=== PATIENT | female | born 1980 | race Caucasian/White ===

== ENCOUNTER 2017-09-08 15:56 | Inpatient (IN) | payer OTHER ==
[2017-09-08 18:46] VITALS: BMI 29.2
[2017-09-08] MEDS: Lactated Ringer's 1,000 ML IV SCH ×2 (19:00→20:00)
[2017-09-08] MEDS ORDERED: Lactated Ringer's 1,000 ML IV SCH ×2 (19:00→21:45)
[2017-09-08] MEDS ORDERED: ceFAZolin 2 GM in Sodium Chloride 0.9% 100 ML IVPB ONE (19:00)
[2017-09-08] MEDS ORDERED: Oxytocin 30 units/LR 500ML 30 U/500 ML BAG IV PRN (19:00)
[2017-09-08 19:39] LABS: BASO % 0.2 % (0.0-2.0); EOS # 0.1 K/uL (0.0-0.7); EOS % 0.9 % (0.0-4.0); HEMATOCRIT 39.2 % (34.0-47.0); LYMPH # 2.6 K/uL (1.0-4.3); LYMPH % 23.4 % (20.0-40.0); MEAN CELL VOLUME 76.1 fl (81.0-99.0); MEAN CORPUSCULAR HEMOGLOBIN 23.6 pg (27.0-31.0); MEAN PLATELET VOLUME 11.9 fl (7.2-11.7); MONO # 0.7 K/uL (0.0-0.8); MONO % 6.7 % (0.0-10.0); NEUT # 7.6 K/uL (1.8-7.0); NEUT % 68.8 % (50.0-75.0)
[2017-09-08] MEDS ORDERED: Morphine 1 mg/ml preservative-free Inj(Duramorph) ONE (20:17)
[2017-09-08] MEDS ORDERED: DiphenhydrAMINE 50 mg/ml Inj IVP PRN (20:46)
[2017-09-08] MEDS ORDERED: Oxycodone/Acetaminophen 5/325 mg Tab PO PRN ×2 (21:32)
[2017-09-08 22:00] VITALS: RESP 18; TEMP 98.6
--- NOTE | 2017-09-08 22:53 | OBADHP ---
Datetime: 09/08/2017 19:24 Admit Comment, IP Provider: 37 y/o female at 38.4wks with YANDEL 11/5 presents to [facility] with CTX st arting at 4pm q5-10min and vaginal bleeding. Denies loss of fluid. Reports good movement. PNC unremarkable. 3rd trimester labs nrml ObHx: Previous C cection, full term, 2011 MedHx: denies SurgHx: denies Social: denies smoking, alcohol, drugs Rxmeds: PNV, Folic acid Allergies: NVDA Triage Vitals wnl FHR: 149, reactive Assessment: IUP at 38.4 wks previous Hx of C section with CTX and vginal bleeding. Plan: Admit for cection [place], PGY1 Pelvic Type - PN: Not Done Extremities - PN: Normal Abdomen - PN: Normal Back - PN: Normal Breast - PN: Not Done Lungs - PN: Normal Heart - PN: Normal Thyroid - PN: Not Done Neurologic - PN: Not Done HEENT - PN: Not Done General - PN: Normal Vital Signs Provider: Reviewed; Within Normal Limits IP Chief Complaint: Uterine contractions; Vaginal bleeding Genitourinary Exam: Not Done DTRs - PN: Not Done EGA AdmitDate IP: 38.4 IP Adm Impression: Term, intrauterine IP Admit Plan: Admit to unit; Initiate Section protocol; Observation/Evaluation
--- NOTE | 2017-09-08 23:03 | OBDS ---
MATERNAL INFORMATION Provider Comments: Repeat low flap transverse section via Pfannenstiel incision. Patient delivered viable infant female with Apgars of 9 and 9 at one and 5 minutes respectively. N ormal uterus, normal tubes and ovaries bilaterally. Estimated blood loss 800 mL fluids 1300 mL lactated Ringer's Urine output 300 mL of clear urine No complications. Patient tolerated procedure well. LABOR SUMMARY EDC: 09/18/2017 00:00 CSECTION DELIVERY Primary Indication: Repeat Elective Labor: Labor Elective: Elective
[2017-09-09] MEDS ORDERED: DiphenhydrAMINE 50 mg/ml Inj IVP PRN (01:16)
[2017-09-09] MEDS ORDERED: Oxycodone/Acetaminophen 5/325 mg Tab PO PRN (01:16)
[2017-09-09] MEDS: Lactated Ringer's 1,000 ML IV SCH ×2 (05:56→13:45)
--- NOTE | 2017-09-09 09:36 | OBPPN ---
Datetime: 09/09/2017 09:29 PP Pain Prov: Within normal limits PP Nausea Prov: Denies PP Flatus Prov: Yes PP Breasts Prov: Normal PP Heart Prov: Normal PP Lungs Prov: Normal PP Abdomen/Uterus Prov: Normal PP Lochia Prov: Normal PP Vulva/Perineum Prov: Normal PP CVA Tenderness Prov: Normal PP Extremities Prov: Normal PP Comments Phys Exam Prov: Fundus firm under umbilicus PP Impression Prov: Normal progression PP Plan Prov: Continue present management PP Progress Note Prov: Patient denies CP, no SOB, no N/V, tolerating PO diet, ambulating/voiding wel l, mild lochia, abdominal pain tolerable with meds, +flatus, no BM POD # 1 1. Continue reg diet 2. Percocet/Motrin prn pain 3. Ambulating/ 4. Colace prn constipation IP PP Procedures: None Vital Signs Provider PP: Reviewed; Within Normal Limits
[2017-09-09 11:12] LABS: HEMATOCRIT 33.8 % (34.0-47.0); MEAN CORPUSCULAR HEMOGLOBIN 23.9 pg (27.0-31.0); MEAN CORPUSCULAR HGB CONC 31.9 g/dL (33.0-37.0); RED CELL DISTRIBUTION WIDTH 17.2 % (11.5-14.5); WHITE BLOOD COUNT 13.9 K/uL (4.8-10.8)
[2017-09-10] MEDS: Oxycodone/Acetaminophen 5/325 mg Tab PO PRN ×2 (03:03→14:23)
--- NOTE | 2017-09-10 08:57 | OBPPN ---
Datetime: 09/10/2017 08:55 PP Pain Prov: Within normal limits PP Nausea Prov: Denies PP Flatus Prov: Yes PP BM Prov: No PP Breasts Prov: Normal PP Heart Prov: Normal PP Lungs Prov: Normal PP Abdomen/Uterus Prov: Normal PP Lochia Prov: Normal PP Vulva/Perineum Prov: Normal PP CVA Tenderness Prov: Normal PP Extremities Prov: Normal PP C/S Incision Prov: Normal PP Progress Prov: Normal PP Impression Prov: Normal progression PP Plan Prov: Continue present management PP Progress Note Prov: She feels fine POD2 sectoin PLAN cont postop care Vital Signs Provider PP: Reviewed; Within Normal Limits
[2017-09-11] MEDS ORDERED: Influenza Vaccine 18yr & older 0.5 ML/45 MCG SYR IM ONE (09:00)
--- NOTE | 2017-09-11 09:41 | OBPPN ---
Datetime: 09/11/2017 09:38 PP Pain Prov: Within normal limits PP Nausea Prov: Denies PP Flatus Prov: Yes PP Breasts Prov: Normal PP Heart Prov: Normal PP Lungs Prov: Normal PP Abdomen/Uterus Prov: Normal PP Lochia Prov: Normal PP Vulva/Perineum Prov: Normal PP CVA Tenderness Prov: Normal PP Extremities Prov: Normal PP Comments Phys Exam Prov: Fundus firm under umbilicus Incision clean/dry/intact PP Impression Prov: Normal progression PP Plan Prov: Continue present management; Discharge PP Progress Note Prov: Patient denies CP, no SOB, no N/V, tolerating PO diet, ambulating/voiding wel l, mild lochia, abdominal pain tolerable with meds, +flatus, +BM A/P POD #3 1. Discharge pt home 2. Discharge instructions reviewed IP PP Procedures: None Vital Signs Provider PP: Reviewed; Within Normal Limits
--- NOTE | 2017-09-11 09:41 | OBDCSUM ---
Datetime: 09/11/2017 09:39 Discharged to, Provider: Home Follow up at, Provider: OB Disch Instr Activity: Normal activity Disch Instr Diet: Regular Discharge Instructions, Provider: Routine instructions given Discharge Diagnosis, Provider: Term Delivered Discharge Time: 09/11/2017 09:39 Follow up in weeks, Provider: 1 wk, 6 wks Disch Referrals: None Contraception discussed, Prov: Yes Disch Activity Restrictions: No sexual activity; Nothing in vagina - [place], tampons, douche Contraception after Delivery: Undecided
[2017-09-11 20:47] VITALS: BP 131/87; PULSE 90; O2SAT 97
== END 2017-09-11 12:50 | disposition home or self-care (01) | DRG 766 ==
LOC: H.EROB2 15:56 → H.L&D 18:48 → H.OB/GYN 09-09 01:15
PROVIDERS: ADMIT Obstetrics & Gynecology; ATTEND Obstetrics & Gynecology
PROC: 10D00Z1 Extraction of Products of Conception, Low, Open Approach (ICD-10-PCS; principal; 2017-09-08)
PROC: 4A1HXCZ Monitoring of Products of Conception, Cardiac Rate, External Approach (ICD-10-PCS; 2017-09-08)
DX: O34.211 Maternal care for low transverse scar from previous cesarean delivery (principal); N85.8 Other specified noninflammatory disorders of uterus; Z37.0 Single live birth; Z3A.38 38 weeks gestation of pregnancy